=== PATIENT | male | born 1990 | race Caucasian/White ===

== ENCOUNTER 2016-09-04 13:31 | Emergency (ER) | payer OTHER ==
[~2016-09-04] VITALS: Ht 185.4 cm; Wt 127.0 kg
[2016-09-04 15:05] LABS: ABSOLUTE BASOPHIL COUNT 0 /CUMM (0.0-0.2); ABSOLUTE EOSINOPHIL COUNT 0.1 /CUMM (0.0-0.7); ABSOLUTE GRANULOCYTE CT 7.5 /CUMM (1.4-6.5); ABSOLUTE LYMPH COUNT 2.1 /CUMM (1.2-3.4); ABSOLUTE MONOCYTE COUNT 0.5 /CUMM (0.10-0.60); BASOPHIL % 0.4 % (0.0-2.0); EOSINOPHIL % 0.7 % (0-5); GRANULOCYTE % 73.2 % (42.2-75.2); MEAN CORPUSCULAR HGB 29.5 PG (27.0-31.0); MEAN CORPUSCULAR HGB CONC 33.5 G/DL (33.0-37.0); MEAN CORPUSCULAR VOLUME 88.2 FL (80.0-94.0); MEAN PLATELET VOLUME 7.6 FL (7.4-10.4); PLATELET COUNT 294 /CUMM (130-400); RBC DISTRIBUTION WIDTH 13.6 % (11.5-14.5); WHITE BLOOD CELL COUNT 10.3 /CUMM (4.8-10.8)
--- NOTE | 2016-09-04 15:22 | ED PSYCHIATRIC COMPLAINT ---
History of Present Illness General Chief Complaint: ETOH/Drug Related Complaint Stated Complaint: REQUESTING DETOX Source: patient, family, old records Exam Limitations: no limitations Vital Signs & Intake/Output Vital Signs & Intake/Output Vital Signs Date Time Temp Pulse Resp B/P Pulse O2 O2 Flow FiO2 Ox Delivery Rate 09/04 1620 98.0 92 18 128/76 97 Room Air 09/04 1504 98.2 90 18 129/78 99 Room Air 09/04 1335 98.0 96 20 131/78 99 Room Air Room Air Allergies Coded Allergies: amoxicillin (Intermediate, RASH/HIVES 09/04/16) Reconcile Medications No Known Home Medications Triage Note: PT TO ED FOR BENZO AND OPIATE DETOX. PT STATING "I HAVE BEEN USING FOR 3 YEARS SINCE MY FATHER ", LAST OPIATE LAST NIGHT AND LAST BENZO TODAY. Triage Nurses Notes Reviewed? yes Onset: Just prior to arrival Duration: hour(s):, constant, continues in ED Timing: recent history Severity: severe Associated Symptoms: anxiety, impaired concentration HPI: Patient admits to 4 years of opiate and benzodiazepine abuse after the of his father. He has been snorting 2 bundles of heroin daily with 2 mg Xanax 4 times a day. He last used heroin last night and Xanax prior to admission. This is reports he was talking about suicide when he was drunk last night if he did not get help for his addiction. Currently denies suicidal homicidal ideation hallucination fever chills nausea vomiting diarrhea abdominal pain chest pain shortness of breath headache dysuria rash bleeding Past History Travel History Traveled to [place] past 21 day No Medical History Any Pertinent Medical History? 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 No Review of Systems Review of Systems Constitutional: Reports: no symptoms. EENTM: Reports: no symptoms. Respiratory: Reports: no symptoms. Cardiovascular: Reports: no symptoms. GI: Reports: no symptoms. Genitourinary: Reports: no symptoms. Musculoskeletal: Reports: no symptoms. Skin: Reports: no symptoms. Neurological/Psychological: Reports: see HPI, anxiety, depressed, emotional problems. Hematologic/Endocrine: Reports: no symptoms. Immunologic/Allergic: Reports: no symptoms. All Other Systems: Reviewed and Negative Physical Exam Physical Exam General Appearance: well developed/nourished, mild distress Head: atraumatic Eyes: Bilateral: PERRL, EOMI. 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 patient not suicidal Progress Differential Diagnosis: drug intoxication, drug overdose, drug withdrawal, electrolyte abnormality, hypoglycemia Plan of Care: Orders Procedure Date/time Status [facility] 09/04 1422 Active URINE DRUG SCREEN FOR ER ONLY 09/04 142 Complete ETHANOL 09/04 1422 Complete COMPREHENSIVE METABOLIC PANEL 09/04 1422 Complete CBC WITHOUT DIFFERENTIAL 09/04 1422 Complete Laboratory Tests 09/04/16 1449: Serum Alcohol < 10.0 09/04/16 1449: Anion Gap 13, Estimated GFR > 60, BUN/Creatinine Ratio 14.3, Glucose 93, Calcium 10.0, Total Bilirubin 0.4, AST 20, ALT 41, Alkaline Phosphatase 81, Total Protein 7.3, Albumin 4.2, Globulin 3.1, Albumin/Globulin Ratio 1.4, CBC w Diff NO MAN DIFF REQ, RBC 5.10, MCV 88.2, MCH 29.5, RDW 13.6, MPV 7.6, Gran % 73.2, Lymphocytes % 20.4 L, Monocytes % 5.3, Eosinophils % 0.7, Basophils % 0.4, Absolute Granulocytes 7.5 H, Absolute Lymphocytes 2.1, Absolute Monocytes 0.5, Absolute Eosinophils 0.1, Absolute Basophils 0, PUBS MCHC 33.5, Urine Opiates Screen > 4000.00 H, Methadone Screen < 40, Barbiturate Screen < 60, Ur Phencyclidine Scrn < 6.00, Amphetamines Screen 304, U Benzodiazepines Scrn < 85, Urine Cocaine Screen 250, Urine Cannabis Screen < 5.00 Departure Departure Time of Disposition: 1555 Disposition: HOME OR SELF CARE Condition: Stable Clinical Impression Primary Impression: Opiate addiction Qualifiers: Substance use status: with unspecified opioid-induced disorder Qualified Code: F11.29 - Opioid dependence with unspecified opioid-induced disorder Secondary Impressions: Benzodiazepine abuse Depression Qualifiers: Depression Type: unspecified Qualified Code: F32.9 - Major depressive disorder, single episode, unspecified Referrals: PATIENT HAS NO PRIMARY CARE DR (PCP/Family) Additional Instructions: Seek a detox program for heroin and xanax abuse. Departure Forms: Customer Survey General Discharge Information Prescriptions: Current Visit Scripts No Known Home Medications
[2016-09-04 16:20] VITALS: BP 128/76
== END 2016-09-04 16:21 ==
LOC: ERH 13:31
PROVIDERS: Emergency Medicine
DX: F11.20 Opioid dependence, uncomplicated (principal); F13.10 Sedative, hypnotic or anxiolytic abuse, uncomplicated; F32.9 Major depressive disorder, single episode, unspecified
CPT/HCPCS: 80307; G0480